=== PATIENT | male | born 1955 | race Caucasian/White ===

== ENCOUNTER → 2017-08-22 | Outpatient (CLI) | payer BC ==
[~2017-08-22] MED LIST: ACT/30 PO; ASCA500 PO; DSY50 PO; FIBETAB PO; IBUP-1450 PO; LOSA100T2 PO; MULT-506 PO; NAPR1TAB9 PO; VITA400C15 PO
[2017-08-22 09:57] LABS: BLOOD UREA NITROGEN 16 mg/dl (7-18); BUN/CREATININE RATIO 19.8 (10-20); CALCIUM 8.8 mg/dl (8.5-10.1); CARBON DIOXIDE 29 mmol/L (21-32); CHLORIDE 108 mmol/L (98-107); CHOLESTEROL 173 mg/dl (0-200); CREATININE 0.83 mg/dl (0.60-1.40); GLUCOSE 99 mg/dl (70-99); POTASSIUM 3.7 mmol/L (3.5-5.1); SODIUM 143 mmol/L (136-145); TRIGLYCERIDES 168 mg/dl (0-150); VERY LOW DENSITY LIPOPROT CALC 34 mg/dl
[2017-08-22 09:58] LABS: CHOLESTEROL/HDL RATIO 4.6; HDL CHOLESTEROL 38 mg/dl; LDL CHOLESTEROL CALCULATED 101 mg/dl
[2017-08-22 10:10] LABS: ESTIMATED AVERAGE GLUCOSE 105 mg/dl; HA1C FLAG Normal (Normal)
[2017-08-23 12:40] LABS: C-REACTIVE PROT HIGHSEN 0.7 MG/L
== END | disposition home or self-care (01) ==
LOC: C.LAB 07:57
DX: I10 Essential (primary) hypertension (principal); E88.81 Metabolic syndrome and other insulin resistance